=== PATIENT | male | born 1985 ===

== ENCOUNTER 2021-01-22 10:46 | Outpatient (REF) | payer OTHER, SELFPAY ==
[2021-01-22 11:03] LABS: MANUAL DIFF FLAG NO
[2021-01-22 11:06] LABS: Basophils Absolute Auto 0.1 X10*3/uL (0.0-0.2); Basophils Percent Auto 1.1 % (0-2); Eosinophils Absolute Auto 0.1 X10*3/uL (0.0-0.4); Hematocrit 40.4 % (42-52); Imm Gran Abs Auto 0.01 X10*3/uL (0.00-0.03); Imm Gran Pct Auto 0.2 % (0.0-0.4); Lymphocytes Absolute Auto 2.6 X10*3/uL (1.2-4.9); Lymphocytes Percent Auto 47.5 % (20-40); Mean Corpuscular HGB Conc 34.7 g/dl (31.0-36.0); Mean Corpuscular Hemoglobin 31.7 pg (27.0-33.0); Mean Corpuscular Volume 91.4 fL (80-98); Mean Platelet Volume 9.6 fL (9.4-12.4); Monocytes Absolute Auto 0.5 X10*3/uL (0.1-1.2); Monocytes Percent Auto 9.6 % (2-11); Neutrophils Absolute Auto 2.1 X10*3/uL (2.0-8.3); Neutrophils Percent Auto 39.6 % (45-73); Platelet Count 237 X10*3/uL (160-400); Red Blood Count 4.42 X10*6/uL (4.60-5.80); Red Cell Distribution Width 11.9 % (11.0-16.0); White Blood Count 5.4 X10*3/uL (4.8-10.8)
[2021-01-22 11:48] LABS: Alanine Aminotransferase 51 U/L (0-40); Albumin Level 4.7 g/dL (3.5-5.0); Alkaline Phosphatase 59 U/L (39-117); Anion Gap 13 (12-20); Aspartate Amino Transferase 70 U/L (5-37); Bilirubin Total 0.8 mg/dL (0.0-1.0); Blood Urea Nitrogen 17 mg/dL (9-16); Calcium 9.8 mg/dL (8.4-10.2); Carbon Dioxide 25 mmol/L (22-29); Chloride 105 mmol/L (96-108); Cholesterol 206 mg/dL; Estimated Glomerular Filt Rate > 60; Glucose Fasting 100 mg/dL (60-99); HDL Cholesterol 67 mg/dL; LDL Cholesterol Calculated 131 mg/dl; Potassium 4.6 mmol/L (3.3-5.1); Sodium 138 mmol/L (135-145); Total Protein 7.2 g/dL (6.5-8.0); Triglycerides 41 mg/dL
[2021-01-22 11:54] LABS: Thyroid Stimulating Hormone 0.68 uIU/mL (0.32-4.0)
== END 2021-01-22 10:47 | disposition home or self-care (01) ==
LOC: HO.LAB 10:46
PROVIDERS: PCP Internal Medicine; Visit Provider Internal Medicine
DX: Z00.00 Encounter for general adult medical examination without abnormal findings (principal); E03.9 Hypothyroidism, unspecified; E11.9 Type 2 diabetes mellitus without complications
CPT/HCPCS: 36415; 80053; 80061; 84443; 85025

== ENCOUNTER → 2021-01-26 14:11 | Outpatient (BNVA) | payer SELFPAY | PROVIDERS: PCP Internal Medicine | DX: R76.11 Nonspecific reaction to tuberculin skin test without active tuberculosis (principal) ==

== ENCOUNTER 2021-06-25 09:14 | Outpatient (REF) | payer OTHER, SELFPAY ==
[2021-06-25 12:02] LABS: Estimated Average Glucose 105 mg/dL; Hemoglobin A1c % 5.3 %
[2021-06-25 12:06] LABS: Alanine Aminotransferase 34 U/L (0-40); Albumin Level 4.9 g/dL (3.5-5.0); Alkaline Phosphatase 57 U/L (39-117); Aspartate Amino Transferase 37 U/L (5-37); Bilirubin Direct 0.3 mg/dL (0.0-0.5); Bilirubin Total 0.8 mg/dL (0.0-1.0); Cholesterol 253 mg/dL; Glucose Fasting 93 mg/dL (60-99); HDL Cholesterol 61 mg/dL; LDL Cholesterol Calculated 181 mg/dl; Total Protein 7.6 g/dL (6.5-8.0); Triglycerides 58 mg/dL
[2021-06-27 04:29] LABS: ~HepC Num1 0.04 S/CO (0.00-0.79); ~Hepatitis B Surface Antibody NONREACTIVE (Nonreactive); ~Hepatitis C Antibody Nonreactive (Nonreactive)
[2021-06-27 04:30] LABS: HBc Num1 0.05 S/CO (0.00-0.79); Hepatitis B Core Antibody Nonreactive (Nonreactive); Hepatitis B Surface Antigen Negative (Negative)
[2021-06-29 04:16] LABS: Hepatitis A Antibody IgM 0.27 Index (0-0.79); ~Hepatitis A Antibody IgM Nonreactive (Nonreactive)
== END 2021-06-25 09:15 | disposition home or self-care (01) ==
LOC: HO.HMGCLDS 09:14
PROVIDERS: PCP Internal Medicine; Visit Provider Internal Medicine
DX: E78.5 Hyperlipidemia, unspecified (principal); R74.8 Abnormal levels of other serum enzymes; R73.01 Impaired fasting glucose
CPT/HCPCS: 36415; 80061; 80076; 82947; 83036; 86704; 86706; 86709; 86803; 87340

== ENCOUNTER 2021-07-07 15:39 | Outpatient (RCR) | payer OTHER, SELFPAY ==
--- NOTE | 2021-07-07 18:26 | MHC.PT.EP ---
[facility] [place] [facility] [place] [facility] [place] [facility] [address] Rosalie Tran [address] [phone] F: [phone] F: [phone] F: [phone] F: [phone] Physical Therapy Plan of Care Date of Evaluation: Date of Surgery: Diagnosis: Pain an Fx L scapula. 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 Pt is deemed an appropriate candidate to receive skilled PT in order to address his physical limitations to improve his functional ability. Frequency and Duration: The patient will be seen 2 x/ wk x 6 wks. Short Term Goals: Initiate HEP with evidence of compliance. Improve baseline pain with activity to < 4/10; initial: 8/10. 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 Pt will report no longer restricted of overhead activities. Improve cervical deep neck flexor endurance to > 25 seconds in order to demonstrate improved cervical stability; initial: 6 seconds. Pt will improve SPADI questionnaire to by at least 13 points in order to demonstrate meaningful functional improvement; Score: 43/130. Treatment Plan: Modalities to reduce pain, spasms and effusion. Manual therapy to restore motion and function. Therapeutic exercise to improve strength and flexibility. Neuromuscular re-education for posture and balance. Therapeutic activities to return to functional activities of daily living. Electronically signed by: Cesar Melendez PT Please sign and return to therapist. Thank you for your referral.
--- NOTE | 2021-09-16 10:15 | MHC.PT.DC ---
[facility] [place] Office [place] Office [place] Office [address] Rosalie Tran [address] [phone] F: [phone] F: [phone] F: [phone] F: [phone] Physical Therapy Discharge Report Diagnosis: Pain an Fx L scapula. Date of Surgery: Date of Evaluation: 07/07/21 Date of Discharge: 09/16/21 Treatments to Date: 1 Cancellations to Date: No Shows to Date: Discharge Status: Discharge Summary: Pt did not follow up with therapy after his initial evaluation. Electronically signed by: Cesar Melendez PT. Please sign and return to therapist. Thank you for your referral.
== END 2021-09-16 10:14 | disposition home or self-care (01) ==
LOC: HO.PTCHIC 15:39
PROVIDERS: PCP Internal Medicine; Visit Provider Internal Medicine
DX: M89.8X1 Other specified disorders of bone, shoulder (principal); S42.102D Fracture of unspecified part of scapula, left shoulder, subsequent encounter for fracture with routine healing
CPT/HCPCS: 97110; 97161

== ENCOUNTER 2022-01-17 07:06 | Outpatient (REF) | payer OTHER, SELFPAY ==
[2022-01-17 12:35] LABS: Alanine Aminotransferase 39 U/L (0-40); Anion Gap 12 (12-20); Aspartate Amino Transferase 33 U/L (5-37); Blood Urea Nitrogen 22 mg/dL (9-16); Calcium 9.7 mg/dL (8.4-10.2); Carbon Dioxide 28 mmol/L (22-29); Chloride 106 mmol/L (96-108); Cholesterol 215 mg/dL; Estimated Glomerular Filt Rate > 60; Glucose Fasting 98 mg/dL (60-99); HDL Cholesterol 74 mg/dL; LDL Cholesterol Calculated 127 mg/dl; Potassium 4.9 mmol/L (3.3-5.1); Sodium 141 mmol/L (135-145); Triglycerides 74 mg/dL
[2022-01-19 05:22] LABS: Rubella IgG Antibody 1.38 Index
[2022-01-19 23:42] LABS: TS Negative Control Passed; TS Panel A 0; TS Panel B 1; TS Positive Control Passed; TSpotTB Negative (Negative)
== END 2022-01-17 07:07 | disposition home or self-care (01) ==
LOC: HO.HMGCLDS 07:06
PROVIDERS: Visit Provider Internal Medicine
DX: Z01.84 Encounter for antibody response examination (principal); Z11.1 Encounter for screening for respiratory tuberculosis; B35.4 Tinea corporis; E78.5 Hyperlipidemia, unspecified
CPT/HCPCS: 36415; 80048; 80061; 84450; 84460; 86481; 86762

== ENCOUNTER 2023-01-16 12:34 | Outpatient (AMB) | payer OTHER, SELFPAY ==
--- NOTE | 2023-01-16 12:37 | A.OFFPC_ITS ---
<Statement entered by Janay Diaz MD - 11/26/24 15:17> This note has been administratively?closed. Vital Signs 01/16/23 12:45 Height 6 ft 4 in Weight 231 lb BMI 28.1 BP 102/70 Blood Pressure Location Rt brachial Position Sitting Pulse 60 Pulse Source Pulse Oximeter Pulse Oximetry (%) 97 Oxygen Delivery Method Room Air Intake Visit Reasons: PE Intake Note: Pt is here today for his PE Allergies No Known Allergies [No Known Allergies*] Allergy (Verified 01/16/23 12:55) Medication List - Last Reconciled 01/16/23 by Janay Diaz MD No Known Home Meds Tobacco use date assessed: 01/16/23 Dental Screening Dental Screen Date: 01/16/23 Did you have a dental visit in the last 12 months?: Yes Did you have a dental problem in the last 6 months where you did not have access to dental care?: Yes Was dental information given to patient?: Patient has dentist HPI PE HPI Details 37-year-old male, here today for physical exam, needs for work. He also needs as screening for TB. He has been feeling well, no known medical history, no complaints at present time. 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 Has had his COVID vaccine but has not yet had his booster nor has he had his flu vaccine last year, and does not want to get these vaccines.. Up-to-date with [facility], [facility] Medical History (Updated 01/16/23 @ 13:19 by Janay Diaz MD) Dyslipidemia Elevated fasting blood sugar Hyperlipidemia Left knee sprain Left wrist fracture Scapular fracture Tinea corporis Surgical History History of surgery on left wrist Family History Mother No problems noted. Father No problems noted. 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 1. Little interest or pleasure in doing things: not at all 2. Feeling down, depressed, or hopeless: not at all 3. Trouble falling or staying asleep, or sleeping too much: several days 4. Feeling tired or having little energy: several days 5. Poor appetite or overeating: not at all 6. Feeling bad about yourself - or that you are a failure or have let yourself or your family down: not at all 7. Trouble concentrating on things, such as reading the newspaper or watching television: not at all 8. Moving or speaking so slowly that other people could have noticed. Or the opposite - being so fidgety or restless that you have been moving around a lot more than usual: not at all 9. Thoughts that you would be better off or of hurting yourself in some way: not at all Total score: 2 Depression Screening Interpretation: Negative 33623 - PHQ-9 Billing: Yes Source: Developed by Drs. Stephen Jaimes, Quiana Daniel, Joaquín Diaz and colleagues, with an educational adriana from [employer]. Thrive Questionnaire Date Thrive assessed: 01/16/23 I am a: Patient What is your living situation today?: I have a steady place to live Within the past 12 months, did the food you bought not last and you didn't have the money to get more?: Never true Within the past 12 months, did you worry whether your food would run out before you got money to buy more?: Never true Do you have trouble paying for medicines?: No Do you have trouble getting transportation to medical appointments?: No Do you have trouble paying your heating and electricity bill?: No Do you have trouble taking care of your child, family member or friend?: No Do you have trouble with day-to-day activities such as bathing, preparing meals, shopping, managing finances, etc.?: No Are you currently unemployed and looking for a job?: No Are you interested in more education?: No LYNNE-7 AMB Questionnaire LYNNE-7 Date LYNNE - 7 assessed: 01/16/23 Feeling nervous, anxious, or on edge: 1 = Several days Not being able to stop or control worryin = Not at all Worrying too much about different things: 1 = Several days Trouble relaxin = Not at all Being so restless that it is hard to sit still: 0 = Not at all Becoming easily annoyed or irritable: 1 = Several days Feeling afraid as if something awful might happen: 0 = Not at all Total LYNNE-7 score (0-4 normal; 5-9 mild; 10-14 moderate; 15-21 severe): 3 Source: Developed by Drs. Stephen Jaimes, Quiana Daniel, Joaquín Diaz and colleagues, with an educational adriana from [employer]. Review of Systems Const Denies difficulty sleeping, Denies fatigue, Denies fever(s), Denies headache(s), Denies lethargy, Denies malaise and Denies weakness Eyes Reports no additional complaints ENT Reports no additional complaints, Reports Normal hearing present, Denies dysphagia, Denies dizziness and Denies headache(s) Card Denies chest pain, Denies irregular heart rhythm, Denies lightheadedness, Denies dyspnea and Denies dyspnea on exertion Resp Denies cough, Denies pain on inspiration, Denies dyspnea, Denies dyspnea on exertion and Denies wheezing GI Denies abdominal pain, Denies melena, Denies hematochezia, Denies change in bowel habits, Denies dysphagia, Denies heartburn and Denies nausea Denies hematuria, Denies difficulty urinating, Denies dysuria, Denies penile discharge, Denies testicular mass and Denies urinary incontinence Musc Denies myalgias, Denies arthralgias, Denies joint swelling, Denies muscle weakness and Denies stiffness Skin/Breast Reports as per HPI Neuro Reports Normal hearing present, Denies dizziness, Denies headache(s), Denies seizure-like activity, Denies Sensory deficit (Neuro) and Denies weakness Psych Reports no additional complaints Endo Denies cold intolerance, Denies fatigue, Denies polyphagia, Denies polydipsia and Denies polyuria Mark/Lymph Denies easy bleeding and Denies easy bruising Aller/Immun Denies wheezing Physical exam (Primary Care) Vital Signs: Last Vital Signs Pulse 60 01/16/23 12:45 BP 102/70 01/16/23 12:45 Pulse Ox 97 01/16/23 12:45 Oxygen Delivery Method Room Air 01/16/23 12:45 BMI result Body Mass Index 28.1 Tobacco/Smoking Status: Tobacco use Status Tobacco use date assessed 01/16/23 01/16/23 12:41 Patient Tobacco Use Status Former Tobacco user 01/16/23 12:38 Tobacco use type Cigarette 01/16/23 12:38 e-Cigarette/Vaping Use Never Used 01/16/23 12:38 PHQ-9: PHQ-9 Score PHQ-9: Total score 2 01/16/23 13:24 Depression Screening Interpretation: Negative Thrive Assessment: Date of Thrive Assessment Date Thrive assessed 01/16/23 01/16/23 13:19 Neuro Cranial nerves: Yes Normal hearing present Sensory Exam: No Sensory deficit (Neuro) Assessment and Plan Assessment & Plan (1) Physical exam: Comment: 40min reviewing chart eval pt and documenting Code(s): Z00.00 - Encounter for general adult medical examination without abnormal findings (2) Elevated fasting blood sugar: Code(s): R73.01 - Impaired fasting glucose (3) Screening for tuberculosis: Code(s): Z11.1 - Encounter for screening for respiratory tuberculosis Orders: Orders Glucose Fasting Today R73.01 - Impaired fasting glucose, Z00.00 - Encounter for general adult medical examination without abnormal findings, Z11.1 - Encounter for screening for respiratory tuberculosis Lipid Panel Today R73.01 - Impaired fasting glucose, Z00.00 - Encounter for general adult medical examination without abnormal findings, Z11.1 - Encounter for screening for respiratory tuberculosis T Spot TB Today R73.01 - Impaired fasting glucose, Z00.00 - Encounter for gener al adult medical examination without abnormal findings, Z11.1 - Encounter for screening for respiratory tuberculosis Coding Level of Care Code Est Pt Prev Care 18-39y(83125) Diagnoses Physical exam Z00.00 Elevated fasting blood sugar R73.01 Screening for tuberculosis Z11.1
[2023-01-16 12:45] VITALS: BP 102/70; PULSE 60; O2SAT 97; BMI 28.1
== END 2023-01-16 14:10 | disposition home or self-care (01) ==
PROVIDERS: Visit Provider Internal Medicine
DX: Z00.00 Encounter for general adult medical examination without abnormal findings (principal); R73.01 Impaired fasting glucose; Z11.1 Encounter for screening for respiratory tuberculosis
CPT/HCPCS: 99499

== ENCOUNTER 2023-01-17 07:01 | Outpatient (REF) | payer OTHER, SELFPAY ==
[2023-01-17 11:43] LABS: Cholesterol 207 mg/dL; Glucose Fasting 96 mg/dL (60-99); HDL Cholesterol 60 mg/dL; LDL Cholesterol Calculated 132 mg/dl; Triglycerides 75 mg/dL
[2023-01-19 20:58] LABS: TS Negative Control Passed; TS Panel A 1; TS Panel B 0; TS Positive Control Passed; TSpotTB Negative (Negative)
== END 2023-01-17 07:02 | disposition home or self-care (01) ==
LOC: HO.HMGCLDS 07:01
PROVIDERS: PCP Internal Medicine; Visit Provider Internal Medicine
DX: Z00.00 Encounter for general adult medical examination without abnormal findings (principal); Z11.1 Encounter for screening for respiratory tuberculosis; R73.9 Hyperglycemia, unspecified
CPT/HCPCS: 36415; 80061; 82947; 86481

== ENCOUNTER 2024-02-26 08:56 | Outpatient (AMB) | payer OTHER, SELFPAY ==
--- NOTE | 2024-02-26 09:01 | MHC.PC.OV ---
Vital Signs 02/26/24 09:02 Height 6 ft 4 in Weight 226 lb BMI 27.5 BP 108/70 Blood Pressure Location Lt brachial Position Sitting Pulse 51 Pulse Source Pulse Oximeter Pulse Oximetry (%) 98 Oxygen Delivery Method Room Air Intake Visit Reasons: Followup skin issues Intake Note: Pt is here today c/o skin pigmentation on his back: He states it comes back in the summer time Allergies No Known Allergies [No Known Allergies*] Allergy (Verified 01/16/23 12:55) Medication List - Last Reconciled 02/29/24 by Janay Diaz MD azelastine 1 spray intranasal BID fexofenadine-pseudoephedrine 60-120 mg ER (Allergy Relief-D (fexofenadine)) 1 tab PO Q12H PRN ketoconazole 2% 1 appl topical BID 2 weeks Tobacco use date assessed: 02/26/24 Dental Screening Dental Screen Date: 02/26/24 Did you have a dental visit in the last 12 months?: Yes Did you have a dental problem in the last 6 months where you did not have access to dental care?: No Was dental information given to patient?: Patient has dentist HPI Followup skin issues HPI Details 38-year-old male here today complaining of recurrent pruritic white patches on upper back which again has appeared now that the weather is starting to get warm. Has had similar rash in the past which occurs only during the summertime. He is also having nasal congestion with postnasal drainage, frontal pressure and sometimes radiating to the ears, which has been present now for the last several weeks. Denies any accompanying sore throat, no fever, no cough reported. [facility] Medical History (Updated 02/26/24 @ 09:45 by Janay Diaz MD) Tinea versicolor Left knee sprain Tinea corporis Dyslipidemia Left wrist fracture Scapular fracture Hyperlipidemia Elevated fasting blood sugar Surgical History History of surgery on left wrist Family History Mother No problems noted. Father No problems noted. 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 1. Little interest or pleasure in doing things: not at all 2. Feeling down, depressed, or hopeless: not at all 3. Trouble falling or staying asleep, or sleeping too much: not at all 4. Feeling tired or having little energy: not at all 5. Poor appetite or overeating: not at all 6. Feeling bad about yourself - or that you are a failure or have let yourself or your family down: not at all 7. Trouble concentrating on things, such as reading the newspaper or watching television: not at all 8. Moving or speaking so slowly that other people could have noticed. Or the opposite - being so fidgety or restless that you have been moving around a lot more than usual: not at all 9. Thoughts that you would be better off or of hurting yourself in some way: not at all Total score: 0 Depression Screening Interpretation: Negative Depression Screening Done: Yes 51890 - PHQ-9 Billing: Yes Source: Developed by Drs. Stephen Jaimes, Quiana Daniel, Joaquín Diaz and colleagues, with an educational adriana from [employer]. Thrive Questionnaire Date Thrive assessed: 02/26/24 I am a: Patient What is your living situation today?: I have a steady place to live Within the past 12 months, did the food you bought not last and you didn't have the money to get more?: I choose not to answer this question Within the past 12 months, did you worry whether your food would run out before you got money to buy more?: I choose not to answer this question Do you have trouble paying for medicines?: I choose not to answer this question Do you have trouble getting transportation to medical appointments?: I choose not to answer this question Do you have trouble paying your heating and electricity bill?: I choose not to answer this question Do you have trouble taking care of your child, family member or friend?: I choose not to answer this question Do you have trouble with day-to-day activities such as bathing, preparing meals, shopping, managing finances, etc.?: I choose not to answer this question Are you currently unemployed and looking for a job?: I choose not to answer this question Are you interested in more education?: I choose not to answer this question Please select the resources that you would like help with: Housing/Residential Currently or been in a relationship where the following occur: I choose not to answer THRIVE Score: 0 AUDIT C Alcohol Use Questionnaire (AUDIT-C) 1. How often do you have a drink containing alcohol?: 2-4 times a month 2. How many drinks containing alcohol do you have on a typical day when you are drinking?: 1 or 2 3. How often do you have six or more drinks on one occasion?: Never Total Score: 2 LYNNE-7 AMB Questionnaire LYNNE-7 Date LYNNE - 7 assessed: 02/26/24 Feeling nervous, anxious, or on edge: 1 = Several days Not being able to stop or control worryin = Several days Worrying too much about different things: 1 = Several days Trouble relaxin = More than half the days Being so restless that it is hard to sit still: 2 = More than half the days Becoming easily annoyed or irritable: 1 = Several days Feeling afraid as if something awful might happen: 2 = More than half the days Total LYNNE-7 score (0-4 normal; 5-9 mild; 10-14 moderate; 15-21 severe): 10 Source: Developed by Drs. Stephen Jaimes, Quiana Daniel, Joaquín Diaz and colleagues, with an educational adriana from [employer]. Review of Systems Const All systems reviewed & are unremarkable except as noted in HPI and below ENT Reports Normal hearing present Neuro Reports Normal hearing present and Denies Sensory deficit (Neuro) Physical exam (Primary Care) Vital Signs: Last Vital Signs Pulse 51 02/26/24 09:02 BP 108/70 02/26/24 09:02 Pulse Ox 98 02/26/24 09:02 Oxygen Delivery Method Room Air 02/26/24 09:02 BMI result Body Mass Index 27.5 Tobacco/Smoking Status: Tobacco use Status Tobacco use date assessed 02/26/24 02/26/24 09:03 Patient Tobacco Use Status Former Tobacco user 02/26/24 09:02 Tobacco use type Cigarette 02/26/24 09:02 e-Cigarette/Vaping Use Never Used 02/26/24 09:02 PHQ-9: PHQ-9 Score PHQ-9: Total score 0 02/26/24 09:32 Depression Screening Interpretation: Negative Thrive Assessment: Date of Thrive Assessment Date Thrive assessed 02/26/24 02/26/24 09:09 Currently or been in a relationship where the following occur: I choose not to answer Const General: no acute distress and alert Nutritional Appearance: average body habitus Orientation/consciousness: patient oriented x3 HENMT Ears: hearing grossly normal bilaterally, external ears normal, TM's normal bilaterally and EAC's normal General nose exam: Normal external nose present and No nasal discharge present Mouth: oropharynx normal and moist mucous membranes Eyes General: appearance normal, both eyes and all related structures Conjunctivae: conjunctivae normal Pupils: Equal, round and reactive pupils present EOM: EOMs intact bilaterally Neck Neck: Yes full ROM, Yes no lymphadenopathy and Yes supple Resp Effort & Inspection: normal respiratory effort and able to speak in complete sentences Auscultation: clear to auscultation bilaterally Cardio Rate: regular rate Rhythm: regular rhythm Heart sounds: S1 normal heart sound present and S2 normal heart sound present GI Inspection: Yes normal to inspection Palpation (GI): Soft to palpation, nontender and no masses Auscultation: normal bowel sounds Back/Spine/Pelvis Back: No back tenderness Skin Other: Faint hypopigmented patches scattered diffusely on back and chest Neuro General: patient oriented x3 Cranial nerves: Yes Equal, round and reactive pupils present and Yes Normal hearing present Cognition (Neuro): normal cognition Gait exam (Neuro): Normal gait present Motor exam (neuro): 5/5 motor strength present throughout Sensory Exam: No Sensory deficit (Neuro) Extrem General: Yes normal to inspection, Yes full ROM, Yes no joint enlargement, Yes no pedal edema, Yes no calf tenderness and Yes normal gait Psych Appearance: grossly normal and well kempt Mental Status: mental status grossly normal Speech and movement: Normal speech and movement present Affect: normal affect Attitude: cooperative Assessment and Plan Assessment & Plan (1) Allergic rhinitis: Code(s): J30.9 - Allergic rhinitis, unspecified Qualifiers: Allergic rhinitis trigger: unspecified Allergic rhinitis seasonality: seasonal Qualified Code(s): J30.2 - Other seasonal allergic rhinitis Plan: Prescription sent for fexofenadine-pseudoephedrine 60-120 mg per tablet to take 1 tablet every 12 hours as needed for nasal congestion, take it only as needed for nasal congestion. Prescription also sent for Azelastine nasal spray, instill 1 spray per nostril twice a day for nasal congestion, samples of saline nasal rinse given to patient, to use as directed (2) Tinea versicolor: Code(s): B36.0 - Pityriasis versicolor Plan: Prescription sent for ketoconazole cream, applied to affected areas twice a day for no more than 10 days . Orders: Orders Alanine Aminotransferase 02/26/24 Z00.01 - Encounter for general adult medical examination with abnormal findings, Z11.3 - Encounter for screening for infections with a predominantly sexual mode of transmission, Z13.1 - Encounter for screening for diabetes mellitus, Z13.220 - Encounter for screening for lipoid disorders, Z83.49 - Family history of other endocrine, nutritional and metabolic diseases Basic Metabolic Panel Fasting 02/26/24 Z00.01 - Encounter for general adult medical examination with abnormal findings, Z11.3 - Encounter for screening for infections with a predominantly sexual mode of transmission, Z13.1 - Encounter for screening for diabetes mellitus, Z13.220 - Encounter for screening for lipoid disorders, Z83.49 - Family history of other endocrine, nutritional and metabolic diseases Complete Blood Count Auto Diff 02/26/24 Z00.01 - Encounter for general adult medical examination with abnormal findings, Z11.3 - Encounter for screening for infections with a predominantly sexual mode of transmission, Z13.1 - Encounter for screening for diabetes mellitus, Z13.220 - Encounter for screening for lipoid disorders, Z83.49 - Family history of other endocrine, nutritional and metabolic diseases TSH reflex Free T4 02/26/24 Z00.01 - Encounter for general adult medical examination with abnormal findings, Z11.3 - Encounter for screening for infections with a predominantly sexual mode of transmission, Z13.1 - Encounter for screening for diabetes mellitus, Z13.220 - Encounter for screening for lipoid disorders, Z83.49 - Family history of other endocrine, nutritional and metabolic diseases Hepatitis B,C Profile 02/26/24 Z00.01 - Encounter for general adult medical examination with abnormal findings, Z11.3 - Encounter for screening for infections with a predominantly sexual mode of transmission, Z13.1 - Encounter for screening for diabetes mellitus, Z13.220 - Encounter for screening for lipoid disorders, Z83.49 - Family history of other endocrine, nutritional and metabolic diseases Aspartate Amino Transferase 02/26/24 Z00.01 - Encounter for general adult medical examination with abnormal findings, Z11.3 - Encounter for screening for infections with a predominantly sexual mode of transmission, Z13.1 - Encounter for screening for diabetes mellitus, Z13.220 - Encounter for screening for lipoid disorders, Z83.49 - Family history of other endocrine, nutritional and metabolic diseases Lipid Panel 02/26/24 Z00.01 - Encounter for general adult medical examination with abnormal findings, Z11.3 - Encounter for screening for infections with a predominantly sexual mode of transmission, Z13.1 - Encounter for screening for diabetes mellitus, Z13.220 - Encounter for screening for lipoid disorders, Z83.49 - Family history of other endocrine, nutritional and metabolic diseases Vitamin D 25-OH Total 02/26/24 Z00.01 - Encounter for general adult medical examination with abnormal findings, Z11.3 - Encounter for screening for infections with a predominantly sexual mode of transmission, Z13.1 - Encounter for screening for diabetes mellitus, Z13.220 - Encounter for screening for lipoid disorders, Z83.49 - Family history of other endocrine, nutritional and metabolic diseases CT NG by PCR 02/26/24 Z00.01 - Encounter for general adult medical examination with abnormal findings, Z11.3 - Encounter for screening for infections with a predominantly sexual mode of transmission, Z13.1 - Encounter for screening for diabetes mellitus, Z13.220 - Encounter for screening for lipoid disorders, Z83.49 - Family history of other endocrine, nutritional and metabolic diseases HIV Ab/Ag 02/26/24 Z00.01 - Encounter for general adult medical examination with abnormal findings, Z11.3 - Encounter for screening for infections with a predominantly sexual mode of transmission, Z13.1 - Encounter for screening for diabetes mellitus, Z13.220 - Encounter for screening for lipoid disorders, Z83.49 - Family history of other endocrine, nutritional and metabolic diseases Medications: New azelastine administer into each nostril 1 spray intranasal BID 30 mL 0RF J30.9 - Allergic rhinitis, unspecified fexofenadine-pseudoephedrine 60-120 mg ER (Allergy Relief-D (fexofenadine)) 1 tab PO Q12H PRN 20 tabs 0RF allergy symptoms/nasal congestion Coding Level of Care Code Est Pt Level 4 (64785) Diagnoses Seasonal allergic rhinitis, unspecified trigger J30.2 Allergic rhinitis trigger: unspecified Allergic rhinitis seasonality: seasonal Tinea versicolor B36.0
[2024-02-26 09:02] VITALS: BP 108/70; PULSE 51; O2SAT 98; BMI 27.5
== END 2024-02-26 10:59 | disposition home or self-care (01) ==
PROVIDERS: PCP Internal Medicine; Visit Provider Internal Medicine
DX: J30.2 Other seasonal allergic rhinitis (principal); B36.0 Pityriasis versicolor
CPT/HCPCS: 99214

== ENCOUNTER 2024-03-28 07:17 | Outpatient (REF) | payer OTHER, SELFPAY ==
[2024-03-28 10:06] LABS: MANUAL DIFF FLAG NO
[2024-03-28 10:10] LABS: Basophils Absolute Auto 0.1 X10*3/uL (0.0-0.2); Eosinophils Absolute Auto 0.1 X10*3/uL (0.0-0.4); Eosinophils Percent Auto 2.4 % (0-4); Hematocrit 43.3 % (42.0-52.0); Hemoglobin 14.7 g/dl (14.0-18.0); Lymphocytes Absolute Auto 1.9 X10*3/uL (1.2-4.9); Lymphocytes Percent Auto 39.1 % (20-40); Mean Corpuscular HGB Conc 33.9 g/dl (31.0-36.0); Mean Corpuscular Hemoglobin 31.4 pg (27.0-33.0); Mean Corpuscular Volume 92.5 fL (80.0-98.0); Mean Platelet Volume 9.9 fL (9.4-12.4); Monocytes Absolute Auto 0.5 X10*3/uL (0.1-1.2); Monocytes Percent Auto 10.1 % (2-11); Neutrophils Absolute Auto 2.3 x10*3/uL (2.0-8.3); Neutrophils Percent Auto 47.4 % (45-73); Platelet Count 217 X10*3/uL (160-400); Red Blood Count 4.68 X10*6/uL (4.60-5.80); Red Cell Distribution Width 11.9 % (11.0-16.0); White Blood Count 4.9 X10*3/uL (4.8-10.8)
[2024-03-28 10:42] LABS: Alanine Aminotransferase 39 U/L (0-40); Anion Gap 14 (12-20); Aspartate Amino Transferase 39 U/L (5-37); Blood Urea Nitrogen 21 mg/dL (9-16); Carbon Dioxide 28 mmol/L (22-29); Chloride 102 mmol/L (96-108); Cholesterol 236 mg/dL (<200); Estimated Glomerular Filt Rate > 60; Glucose Fasting 92 mg/dL (60-99); HDL Cholesterol 77 mg/dL (>40); LDL Cholesterol Calculated 149 mg/dL (<100); Potassium 3.9 mmol/L (3.3-5.1); Sodium 140 mmol/L (135-145); Triglycerides 52 mg/dL (<150)
[2024-03-28 11:03] LABS: TSH reflex Free T4 1.28 uIU/mL (0.32-4.0); Vitamin D 25-OH Total 62.3 ng/mL (>30)
[2024-03-28 11:19] LABS: HBS Num1 0.58 mIU/mL (0-7.99); HBc Num1 0.07 S/CO (0.00-0.79); HBsAGNum1 0.25 S/CO (0.00-0.99); HIV AB/AG Nonreactive (Nonreactive); HIV Num 1 0.05 S/CO (0.00-0.99); Hepatitis B Core Antibody Nonreactive (Nonreactive); Hepatitis B Surface Antigen Negative (Negative); ~HepC Num1 0.07 S/CO (0.00-0.79); ~Hepatitis B Surface Antibody NONREACTIVE (Nonreactive); ~Hepatitis C Antibody Nonreactive (Nonreactive)
== END 2024-03-28 07:18 | disposition home or self-care (01) ==
LOC: HO.HMGCLDS 07:17
PROVIDERS: PCP Internal Medicine; Visit Provider Internal Medicine
DX: Z00.01 Encounter for general adult medical examination with abnormal findings (principal); Z13.220 Encounter for screening for lipoid disorders; Z13.1 Encounter for screening for diabetes mellitus; Z83.49 Family history of other endocrine, nutritional and metabolic diseases; Z11.3 Encounter for screening for infections with a predominantly sexual mode of transmission
CPT/HCPCS: 36415; 80048; 80061; 82306; 84443; 84450; 84460; 85025; 86704; 86706; 86803; 87340; 87389

== ENCOUNTER 2024-03-31 12:56 | Outpatient (AMB) | payer OTHER, SELFPAY ==
[2024-03-31 13:30] VITALS: BP 122/80; PULSE 64; O2SAT 98; BMI 27.9
--- NOTE | 2024-03-31 13:30 | MHC.PC.OV ---
Vital Signs 03/31/24 13:30 Height 6 ft 4 in Weight 229 lb 2 oz BMI 27.9 BP 122/80 Blood Pressure Location Lt brachial Pulse 64 Pulse Source Pulse Oximeter Pulse Oximetry (%) 98 Oxygen Delivery Method Room Air Intake Visit Reasons: Annual PE Intake Note: Pt is here today for his annual physical Allergies No Known Allergies [No Known Allergies*] Allergy (Verified 03/31/24 13:41) Medication List - Last Reconciled 03/31/24 by Janay Diaz MD azelastine 1 spray intranasal BID fexofenadine-pseudoephedrine 60-120 mg ER (Allergy Relief-D (fexofenadine)) 1 tab PO Q12H PRN ketoconazole 2% 1 appl topical BID 2 weeks Tobacco use date assessed: 03/31/24 Dental Screening Dental Screen Date: 03/31/24 Did you have a dental visit in the last 12 months?: Yes Did you have a dental problem in the last 6 months where you did not have access to dental care?: No Was dental information given to patient?: Patient has dentist HPI Annual PE HPI Details 38-year-old male with PMHx significant fo hyperlipidemia, tinea versicolor, seasonal and environmental allergies, here today for a physical exam. He works at [employer] and is due for an annual TB screening . He is up-to-date with his vaccinations. States that ketoconazole cream affords only temporary relief of the rash on his back. Would like to try the previous treatment he received in the past which consisted of selenium sulfide. 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 [facility] Medical History Tinea versicolor Left knee sprain Tinea corporis Dyslipidemia Left wrist fracture Scapular fracture Hyperlipidemia Elevated fasting blood sugar Surgical History History of surgery on left wrist Family History Mother No problems noted. Father No problems noted. 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 1. Little interest or pleasure in doing things: not at all 2. Feeling down, depressed, or hopeless: not at all 3. Trouble falling or staying asleep, or sleeping too much: not at all 4. Feeling tired or having little energy: several days 5. Poor appetite or overeating: not at all 6. Feeling bad about yourself - or that you are a failure or have let yourself or your family down: several days 7. Trouble concentrating on things, such as reading the newspaper or watching television: not at all 8. Moving or speaking so slowly that other people could have noticed. Or the opposite - being so fidgety or restless that you have been moving around a lot more than usual: not at all 9. Thoughts that you would be better off or of hurting yourself in some way: not at all Total score: 2 Depression Screening Interpretation: Negative Depression Screening Done: Yes 32796 - PHQ-9 Billing: Yes Source: Developed by Drs. Stephen Jaimes, Quiana Daniel, Joaquín Diaz and colleagues, with an educational adriana from [employer]. Thrive Questionnaire Date Thrive assessed: 03/31/24 I am a: Patient What is your living situation today?: I have a steady place to live Within the past 12 months, did the food you bought not last and you didn't have the money to get more?: I choose not to answer this question Within the past 12 months, did you worry whether your food would run out before you got money to buy more?: I choose not to answer this question Do you have trouble paying for medicines?: I choose not to answer this question Do you have trouble getting transportation to medical appointments?: I choose not to answer this question Do you have trouble paying your heating and electricity bill?: I choose not to answer this question Do you have trouble taking care of your child, family member or friend?: I choose not to answer this question Do you have trouble with day-to-day activities such as bathing, preparing meals, shopping, managing finances, etc.?: I choose not to answer this question Are you currently unemployed and looking for a job?: I choose not to answer this question Are you interested in more education?: I choose not to answer this question Please select the resources that you would like help with: Housing/Skilled Nursing Currently or been in a relationship where the following occur: I choose not to answer THRIVE Score: 0 AUDIT C Alcohol Use Questionnaire (AUDIT-C) 1. How often do you have a drink containing alcohol?: 2-4 times a month 2. How many drinks containing alcohol do you have on a typical day when you are drinking?: 1 or 2 3. How often do you have six or more drinks on one occasion?: Never Total Score: 2 Score Reviewed/Action Taken: Yes LYNNE-7 AMB Questionnaire LYNNE-7 Date LYNNE - 7 assessed: 03/31/24 Feeling nervous, anxious, or on edge: 1 = Several days Not being able to stop or control worryin = Not at all Worrying too much about different things: 1 = Several days Trouble relaxin = Several days Being so restless that it is hard to sit still: 1 = Several days Becoming easily annoyed or irritable: 1 = Several days Feeling afraid as if something awful might happen: 0 = Not at all Total LYNNE-7 score (0-4 normal; 5-9 mild; 10-14 moderate; 15-21 severe): 5 Source: Developed by Drs. Stephen Jaimes, Quiana Daniel, Joaquín Diaz and colleagues, with an educational adriana from [employer]. LYNNE-7 Assessment Billing LYNNE-7 Assessment Tool: LYNNE-7 Assessment 03124 Review of Systems Const Denies difficulty sleeping, Denies fatigue, Denies fever(s), Denies headache(s), Denies lethargy, Denies malaise and Denies weakness Eyes Reports no additional complaints ENT Reports Normal hearing present, Denies dysphagia, Denies dizziness and Denies headache(s) Card Denies chest pain, Denies irregular heart rhythm, Denies lightheadedness, Denies dyspnea and Denies dyspnea on exertion Resp Denies cough, Denies pain on inspiration, Denies dyspnea, Denies dyspnea on exertion and Denies wheezing GI Denies abdominal pain, Denies melena, Denies hematochezia, Denies change in bowel habits, Denies dysphagia, Denies heartburn and Denies nausea Denies hematuria, Denies difficulty urinating, Denies dysuria, Denies penile discharge, Denies testicular mass and Denies urinary incontinence Musc Denies myalgias, Reports arthralgias (Recurrent in shoulder ), Denies joint swelling, Denies muscle weakness and Denies stiffness Skin/Breast Reports as per HPI Neuro Reports Normal hearing present, Denies dizziness, Denies headache(s), Denies seizure-like activity, Denies Sensory deficit (Neuro) and Denies weakness Psych Reports no additional complaints Endo Denies cold intolerance, Denies fatigue, Denies polyphagia, Denies polydipsia and Denies polyuria Mark/Lymph Denies easy bleeding and Denies easy bruising Aller/Immun Denies wheezing Physical exam (Primary Care) Vital Signs: Last Vital Signs Pulse 64 03/31/24 13:30 BP 122/80 03/31/24 13:30 Pulse Ox 98 03/31/24 13:30 Oxygen Delivery Method Room Air 03/31/24 13:30 BMI result Body Mass Index 27.9 Tobacco/Smoking Status: Tobacco use Status Tobacco use date assessed 03/31/24 03/31/24 13:34 Patient Tobacco Use Status Former Tobacco user 03/31/24 13:34 Tobacco use type Cigarette 03/31/24 13:34 e-Cigarette/Vaping Use Never Used 03/31/24 13:34 PHQ-9: PHQ-9 Score PHQ-9: Total score 2 03/31/24 13:43 Depression Screening Interpretation: Negative Thrive Assessment: Date of Thrive Assessment Date Thrive assessed 03/31/24 03/31/24 13:34 Currently or been in a relationship where the following occur: I choose not to answer Const General: no acute distress and alert Nutritional Appearance: average body habitus Orientation/consciousness: patient oriented x3 HENMT Ears: hearing grossly normal bilaterally, external ears normal, TM's normal bilaterally and EAC's normal General nose exam: Normal external nose present and No nasal discharge present Mouth: oropharynx normal and moist mucous membranes Eyes General: appearance normal, both eyes and all related structures Conjunctivae: conjunctivae normal Pupils: Equal, round and reactive pupils present EOM: EOMs intact bilaterally Neck Neck: Yes full ROM, Yes no lymphadenopathy and Yes supple Chest Chest palpation & inspection: normal inspection of the chest Resp Effort & Inspection: normal respiratory effort and able to speak in complete sentences Auscultation: clear to auscultation bilaterally Cardio Rate: regular rate Rhythm: regular rhythm Heart sounds: S1 normal heart sound present and S2 normal heart sound present GI Inspection: Yes normal to inspection Palpation (GI): Soft to palpation, nontender and no masses Auscultation: normal bowel sounds General: Yes no CVA tenderness Male General Exam: Yes normal external exam Back/Spine/Pelvis Back: no CVA tenderness and No back tenderness Skin Other: Faint hypopigmented patches scattered diffusely on back and chest Neuro General: patient oriented x3 Cranial nerves: Yes Equal, round and reactive pupils present and Yes Normal hearing present Cognition (Neuro): normal cognition Gait exam (Neuro): Normal gait present Motor exam (neuro): 5/5 motor strength present throughout Sensory Exam: No Sensory deficit (Neuro) Extrem General: Yes normal to inspection, Yes full ROM, Yes no joint enlargement, Yes no pedal edema, Yes no calf tenderness and Yes normal gait Psych Appearance: grossly normal and well kempt Mental Status: mental status grossly normal Speech and movement: Normal speech and movement present Affect: normal affect Attitude: cooperative Results Reviewed Results Reviewed: Name: Franki Leung Age/Sex: 38/M : 1985 Unit#: [id number] Attend Dr: Janay Diaz MD Re03/28/24 Status: DEP REF [facility] Disch: SPEC : [id number] SHANTEL: 03/28/24 STATUS: COMP REQ : [id number] RECD: 03/28/[address]: Janay Diaz MD COMP: 03/28/24 ENTERED: 03/28/[address]: ORDERED: CBC Auto Diff Test Result Flag Reference WBC 4.9 4.8-10.8 X10*3/uL RBC 4.68 4.60-5.80 X10*6/uL HGB 14.7 14.0-18.0 g/dl HCT 43.3 42.0-52.0 % MCV 92.5 80.0-98.0 fL MCH 31.4 27.0-33.0 pg MCHC 33.9 31.0-36.0 g/dl RDW 11.9 11.0-16.0 % PLT 217 160-400 X10*3/uL MPV 9.9 9.4-12.4 fL Neut Pct Auto 47.4 45-73 % ImGran Pct Auto 0.0 0.0-0.4 % Lymp Pct Auto 39.1 20-40 % [place] Pct Auto 10.1 2-11 % Eos Pct Auto 2.4 0-4 % Baso Pct Auto 1.0 0-2 % NRBC Pct Auto 0.0 0.0-0.2 /100WBC ANC Neut Abs # 2.3 2.0-8.3 x10*3/uL ImGran Abs Auto 0.00 0.00-0.03 X10*3/uL Lymph Abs Auto 1.9 1.2-4.9 X10*3/uL [place] Abs Auto 0.5 0.1-1.2 X10*3/uL Eos Abs Auto 0.1 0.0-0.4 X10*3/uL Baso Abs Auto 0.1 0.0-0.2 X10*3/uL NRBC Abs Auto 0.000 0.0-0.012 X10*3/uL Name: Shine Leungana Cuellar Age/Sex: 38/M : 1985 Unit#: [id number] Attend Dr: Janay Diaz MD Re03/28/24 Status: DEP REF Location: [facility] Disch: SPEC : [id number] SHANTEL: 03/28/24 STATUS: COMP REQ : [id number] RECD: 03/28/[address]: Janay Diaz MD COMP: 03/28/24 ENTERED: 03/28/[address]: ORDERED: Met Prof Fast, AST, ALT, Lipid Panel, Vitamin D 25-OH, TSH Rflx Test Result Flag Reference Sodium 140 135-145 mmol/L Potassium 3.9 3.3-5.1 mmol/L CL 102 96-108 mmol/L CO2 28 22-29 mmol/L Gap 14 12-20 BUN 21 H 9-16 mg/dL Creat 1.09 0.5-1.4 mg/dL EGFR > 60 NOTE: For -[place] individuals, multiply the result by 1.210. Chronic Kidney Disease: Estimated GFR < 60 mL/min/1.73m2 Severe Kidney Disease: Estimated GFR < 15 mL/min/1.73m2 FBS 92 60-99 mg/dL CA 10.0 8.4-10.2 mg/dL AST (GOT) 39 H 5-37 U/L ALT (GPT) 39 0-40 U/L Triglyceride 52 <150 mg/dL Desirable Triglyceride: less than 150 mg/dL Borderline High Triglyceride 150-199 mg/dL High Triglyceride: 200-499 mg/dL Very High Triglyceride: greater than or equal to 5OO mg/dL Cholesterol 236 H <200 mg/dL Desirable Cholesterol: less than 200 mg/dL Borderline High Cholesterol: 200-239 mg/dL High Cholesterol: greater than 239 mg/dL LDL Calculated 149 H <100 mg/dL Desirable LDL: less than 100 mg/dL Near Optimal/Above Optimal LDL: 110-129 mg/dL Borderline High LDL: 130-159 mg/dL High LDL: 160-189 mg/dL Very High LDL: greater than or equal to 190 mg/dL HDL 77 >40 mg/dL Desirable HDL: greater than 40 mg/dL Note: This HDL assay may give artificially low results in patients with liver disease. Vit D 25-OH Tot 62.3 >30 ng/mL Health Based Reference Values* < 20 ng/mL Deficient 20-30 ng/mL Insufficient > 30 ng/mL Sufficient *Jayson DODGE. N Engl J Med. 2007;357:266-280 Care must be taken in interpreting Vitamin D results from different laboratories and methodologies. Published data demonstrated that results from patients undergoing hemodialysis may show a negative bias when tested with various automated 25-OH vitamin D assays when compared to LC-MS/MS. When testing samples from patients whose predominant form of Vitamin D is Vitamin D2, such as patients receiving Vitamin D2 supplementation, results that are subtherapeutic should be confirmed with another method such as LC-MS/MS. TSH 1.28 0.32-4.0 uIU/mL Assessment and Plan Assessment & Plan (1) Annual visit for general adult medical examination with abnormal findings: Code(s): Z00.01 - Encounter for general adult medical examination with abnormal findings Plan: Reviewed recent fasting lab results with patient. Recommended dental visit every 6 months and regular eye exams, at least every 2 years. Take adequate calcium in diet and vitamin-D 3 at 2000 IU per cap once a day, in addition to weight-bearing exercises to help maintain good muscle tone and weight control. Instructed to do self-testicular exam check for any mass. Advised to get yearly flu shots, and get the new COVID booster, up-to-date with Tdap (2) Tinea versicolor: Code(s): B36.0 - Pityriasis versicolor Plan: Stop ketoconazole, prescription sent for selenium sulfide lotion 2.5% to apply to affected area chest and back twice a week for at least 2 weeks (3) Screening examination for pulmonary tuberculosis: Code(s): Z11.1 - Encounter for screening for respiratory tuberculosis Plan: T spot ordered (4) Hyperlipidemia LDL goal <100: Code(s): E78.5 - Hyperlipidemia, unspecified Plan: Reviewed recent fasting lipid profile with patient with elevated LDL cholesterol . Advised to follow a low-cholesterol diet and regular exercise, at least 30 minutes 3 to 4 times a week. Advised patient to make healthy food choices, eat more fruits, vegetables, whole grains, wild caught fish and low-fat dairy. Limit amount of meat and fried or fatty food products, as well as processed foods and fast foods. Orders: Orders T Spot TB 03/31/24 Z11.1 - Encounter for screening for respiratory tuberculosis Medications: New selenium sulfide 2.5% 1 appl topical 2XW 2 weeks 120 mL 0RF B36.0 - Pityriasis versicolor Discontinued ketoconazole 2% Discontinued Reason: Doctor's Order 1 appl topical BID 2 weeks 60 grams 0RF B36.0 - Pityriasis versicolor Coding Level of Care Code Est Pt Prev Care 18-39y(42391) Diagnoses Annual visit for general adult medical examination with abnormal findings Z00. Tinea versicolor B36.0 Screening examination for pulmonary tuberculosis Z11. Hyperlipidemia LDL goal <100 E78.5 Additional Codes LYNNE-7 Assessment Billing - LYNNE-7 Assessment Tool: LYNNE-7 Assessment 41136 ([id number])
== END 2024-03-31 14:06 | disposition home or self-care (01) ==
PROVIDERS: PCP Internal Medicine; Visit Provider Internal Medicine
DX: Z00.00 Encounter for general adult medical examination without abnormal findings (principal); B36.0 Pityriasis versicolor; Z11.1 Encounter for screening for respiratory tuberculosis; E78.5 Hyperlipidemia, unspecified
CPT/HCPCS: 99395

== ENCOUNTER 2024-04-01 07:06 | Outpatient (REF) | payer OTHER, SELFPAY ==
[2024-04-04 11:08] LABS: TS Negative Control Passed; TS Panel A 0; TS Panel B 0; TS Positive Control Passed; TSpotTB Negative (Negative)
== END 2024-04-01 07:07 | disposition home or self-care (01) ==
LOC: HO.HMGCLDS 07:06
PROVIDERS: PCP Internal Medicine; Visit Provider Internal Medicine
DX: Z11.1 Encounter for screening for respiratory tuberculosis (principal)
CPT/HCPCS: 36415; 86481

== ENCOUNTER 2024-06-30 08:38 | Outpatient (AMB) | payer OTHER, SELFPAY ==
--- NOTE | 2024-06-30 08:53 | AM.OFFWIN_ITS ---
Intake Vital Signs 06/30/24 08:54 Height 64 ft Weight 232 lb BMI 0.3 BP 118/70 Blood Pressure Location Rt brachial Position Sitting Pulse 69 Pulse Source Pulse Oximeter Pulse Oximetry (%) 98 Oxygen Delivery Method Room Air Intake Visit Reasons: EP LT wrist pain Intake Note: Patien there for left wrist pain that started yesterday. pt states he has had surgery on that hand so would like to make sure everything is ok. Patient Tobacco Use Status: Former Tobacco user Allergies No Known Allergies [No Known Allergies*] Allergy (Verified 06/30/24 08:55) Do you need a note to return to daycare/school/sports/work: Yes HPI HPI Comments History of Present Illness Details History of Present Illness The patient is a 38-year-old male presenting with wrist pain. He reports playing soccer last night and experiencing increased wrist pain subsequently. The patient states no specific incident of injury but describes discomfort and pain on the base of the thumb/wrist. He has a history of prior wrist surgery involving screws due to a condition where insufficient blood was reaching his fingers, necessitating urgent surgical intervention. This morning, the patient reports intensified pain primarily at the base of the thumb. He denies swelling, numbness, or tingling and has maintained full range of motion in his fingers. Pain is exacerbated by lateral and medial deviations of the wrist and flexion and extension. He expresses concern about potential displacement of the previously placed screw. Physical Exam General: Cooperative, healthy appearing, comfortable, no acute distress and well developed Orientation: Patient oriented x3 Limitations: Limited flexibility in the wrist Head: Normal to inspection Ears: Hearing grossly normal bilaterally Nose: Normal external nose present Face and sinus: Normal facial exam Eyes: Appearance normal, both eyes and all related structures Neck: Normal visual inspection and Yes full ROM Respiratory: Normal respiratory effort and able to speak in complete sentences. Clear to auscultation bilaterally Cardiovascular: Regular rate and rhythm. Normal S1 and S2 GI: Normal to inspection. Soft to palpation and nontender Skin: No rashes or lesions noted Neuro: Patient oriented x3 Extremities: Surgical scar noted on left wrist, left Wrist TTP, especially at the base of the thumb. Limited range of motion in the left wrist with pain on flexion, extension, and medial deviation. No numbness or tingling in fingers. Normal finger movement with full range of motion. Fingers [facility] Medical History Tinea versicolor Left knee sprain Tinea corporis Dyslipidemia Left wrist fracture Scapular fracture Hyperlipidemia Elevated fasting blood sugar Surgical History History of surgery on left wrist Family History Mother No problems noted. Father No problems noted. 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 Current occupational exposures/hazards: No Cognitive needs: No Hearing needs: No Vision needs: Yes Review of Systems Const All systems reviewed & are unremarkable except as noted in HPI and below Physical Exam Vital Signs: Last Vital Signs Pulse 69 06/30/24 08:54 BP 118/70 06/30/24 08:54 Pulse Ox 98 06/30/24 08:54 Oxygen Delivery Method Room Air 06/30/24 08:54 BMI result Body Mass Index 0.3 Assessment & Plan Assessment & Plan (1) Wrist pain, left: Code(s): M25.532 - Pain in left wrist Plan: Plan For the wrist pain, likely due to minor trauma from recent physical activity, I have ordered an x-ray to assess for any potential displacement of the existing screw or other structural abnormalities. The patient is advised to rest, apply ice to the affected area, and use ibuprofen for pain management. An Dc wrap or wrist brace may be used temporarily for support, although not recommended for extended use beyond three to four days to avoid stiffness. If the x-ray findings suggest further intervention is necessary, follow-up actions will be considered. The patient is provided a note for rest from work to avoid worsening of the condition. Patient was informed and verbally consented to the use of an ambient scribe for clinic note documentation during this visit. Orders: Orders XR wrist LT w scaphoid Today M25.532 - Pain in left wrist Coding Level of Care Code Est Pt Level 4 (00333) Diagnoses Wrist pain, left M25.532
[2024-06-30 08:54] VITALS: BP 118/70; PULSE 69; O2SAT 98
== END 2024-06-30 09:09 | disposition home or self-care (01) ==
PROVIDERS: PCP Internal Medicine; Visit Provider Physician Assistant
DX: M25.532 Pain in left wrist (principal)

== ENCOUNTER 2024-06-30 08:38 | Outpatient (REF) | payer OTHER, SELFPAY ==
--- NOTE | ~2024-06-30 | XR_ITS ---
EXAMINATION: XR WRIST, LEFT CLINICAL INFORMATION: Left wrist pain. COMPARISON: Left finger radiographs dated 03/31/2019. TECHNIQUE: PA, lateral, oblique, and scaphoid views of the left wrist. FINDINGS: Redemonstration of a scaphoid orthopedic screw without evidence of hardware complication. No fracture or loosening. Degenerative cystic change at the scapholunate articulation as well as at the base of the scaphoid. Small triscaphe marginal osteophytes. Findings are similar when compared to the prior radiographs. Mild widening of the scapholunate articulation, which could indicate an underlying scapholunate ligament tear. No acute osseous fracture. No concerning lytic or blastic osseous lesion. Small amount of calcification along the dorsal aspect of the radiocarpal joint, which could represent early chondrocalcinosis. XR/XR wrist LT w scaphoid IMPRESSION: 1. Scaphoid orthopedic screw without evidence of hardware complication. 2. Mild widening of the scapholunate articulation, which could indicate an underlying scapholunate ligament tear, similar when compared to the prior radiographs. 3. Degenerative cystic change at the scapholunate articulation as well as at the base of the scaphoid, similar when compared to the prior radiographs. 4. Mild triscaphe osteoarthritis, unchanged. Electronically signed by: Jose Hernandez MD 06/30/2024 11:14 AM CAROL
== END 2024-06-30 08:39 | disposition home or self-care (01) ==
LOC: HO.HMGCX 08:38
PROVIDERS: PCP Internal Medicine; Visit Provider Physician Assistant
DX: M25.532 Pain in left wrist (principal)
CPT/HCPCS: 73110

== ENCOUNTER 2024-08-29 08:32 | Outpatient (AMB) | payer OTHER, SELFPAY ==
--- NOTE | 2024-08-29 08:29 | MHC.PC.OV ---
Intake Visit Reasons: discuss personal issues Intake Note: Pt is having a telehealth c/o panic attacks at times Allergies No Known Allergies [No Known Allergies*] Allergy (Verified 08/29/24 08:41) Medication List - Last Reconciled 08/29/24 by Janay Diaz MD No Known Home Meds Tobacco use date assessed: 08/29/24 Dental Screening Dental Screen Date: 08/29/24 Did you have a dental visit in the last 12 months?: Yes Did you have a dental problem in the last 6 months where you did not have access to dental care?: No Was dental information given to patient?: Patient has dentist HPI HPI Comments History of Present Illness Details - The patient is a 39-year-old male presenting with episodes of chest tightness and difficulty breathing. - Symptoms began approximately six months ago, usually during physical exertion or after large meals. - He experiences a sensation of tightness and difficulty in breathing, mainly at night after eating. - Lifestyle modifications such as reducing caffeine intake have led to a decrease in episode frequency. - There is no associated stomach pain, and past medical history indicates no changes in blood pressure or heart issues. [facility] Medical History Tinea versicolor Left knee sprain Tinea corporis Dyslipidemia Left wrist fracture Scapular fracture Hyperlipidemia Elevated fasting blood sugar Surgical History History of surgery on left wrist Family History Mother No problems noted. Father No problems noted. 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 1. Little interest or pleasure in doing things: not at all 2. Feeling down, depressed, or hopeless: not at all 3. Trouble falling or staying asleep, or sleeping too much: not at all 4. Feeling tired or having little energy: not at all 5. Poor appetite or overeating: not at all 6. Feeling bad about yourself - or that you are a failure or have let yourself or your family down: not at all 7. Trouble concentrating on things, such as reading the newspaper or watching television: not at all 8. Moving or speaking so slowly that other people could have noticed. Or the opposite - being so fidgety or restless that you have been moving around a lot more than usual: not at all 9. Thoughts that you would be better off or of hurting yourself in some way: not at all Total score: 0 Depression Screening Interpretation: Negative Depression Screening Done: Yes [id number] - PHQ-9 Billing: Yes Source: Developed by Drs. Stephen Jaimes, Quiana Daniel, Joaquín Diaz and colleagues, with an educational adriana from [employer]. Thrive Questionnaire Date Thrive assessed: 08/29/24 I am a: Patient What is your living situation today?: I have a steady place to live Within the past 12 months, did the food you bought not last and you didn't have the money to get more?: Never true Within the past 12 months, did you worry whether your food would run out before you got money to buy more?: Never true Do you have trouble paying for medicines?: No Do you have trouble getting transportation to medical appointments?: No Do you have trouble paying your heating and electricity bill?: No Do you have trouble taking care of your child, family member or friend?: No Do you have trouble with day-to-day activities such as bathing, preparing meals, shopping, managing finances, etc.?: No Are you currently unemployed and looking for a job?: No Are you interested in more education?: No THRIVE Score: 0 AUDIT C Alcohol Use Questionnaire (AUDIT-C) 1. How often do you have a drink containing alcohol?: Monthly or less 2. How many drinks containing alcohol do you have on a typical day when you are drinking?: 1 or 2 3. How often do you have six or more drinks on one occasion?: Never Total Score: 1 LYNNE-7 AMB Questionnaire LYNNE-7 Date LYNNE - 7 assessed: 08/29/24 Feeling nervous, anxious, or on edge: 1 = Several days Not being able to stop or control worryin = Several days Worrying too much about different things: 1 = Several days Trouble relaxin = Not at all Being so restless that it is hard to sit still: 0 = Not at all Becoming easily annoyed or irritable: 0 = Not at all Feeling afraid as if something awful might happen: 0 = Not at all Total LYNNE-7 score (0-4 normal; 5-9 mild; 10-14 moderate; 15-21 severe): 3 Source: Developed by Drs. Stephen Jaimes, Quiana Daniel, Joaquín Diaz and colleagues, with an educational adriana from [employer]. Review of Systems Const All systems reviewed & are unremarkable except as noted in HPI and below Physical exam (Primary Care) Tobacco/Smoking Status: Tobacco use Status Tobacco use date assessed 08/29/24 08/29/24 08:30 Patient Tobacco Use Status Former Tobacco user 08/29/24 08:30 Tobacco use type Cigarette 08/29/24 08:30 e-Cigarette/Vaping Use Never Used 08/29/24 08:30 PHQ-9: PHQ-9 Score PHQ-9: Total score 0 08/29/24 08:52 Depression Screening Interpretation: Negative Thrive Assessment: Date of Thrive Assessment Date Thrive assessed 08/29/24 08/29/24 08:32 Telehealth Telehealth Telehealth Platform: [facility] Location of provider rendering services: practice address Location of patient: address on file Patient Identification confirmed using: Name, : Yes Telehealth method: video Patient verbally consented to treatment: Yes Patient verbally consented to billing insurance company: Yes Patient informed of any privacy concerns related to visit: Yes Minutes spent on Phone/Video with Pt.: 15 Coding Level of Care Code Tele Est Pt Level 3 (41936) Diagnoses Sensation of chest tightness R07.89 Additional Codes PHQ-9 - 40379 - PHQ-9 Billing: Yes ([id number]) Assessment & Plan Assessment & Plan (1) Sensation of chest tightness: Code(s): R07.89 - Other chest pain Plan: A diagnostic plan is established to explore the possible presence of a hiatal hernia with an upper GI series and to rule out cardiac issues with an EKG. The patient is to begin omeprazole therapy, which is intended to reduce stomach acidity. Attention to dietary choices with a reduction in caffeine and acidic foods is recommended. - Take omeprazole 20 mg once daily, an hour before the first meal of the day. - Avoid acidic foods, caffeine, and fried foods to help reduce symptoms. - Stay upright for a while after eating to help prevent symptoms. - Follow up with the hospital for scheduled EKG and upper GI series. - Contact us if no call is received regarding test scheduling. - Engage in physical activity as tolerated and be mindful of symptoms. - Report any new or worsening symptoms immediately. Patient was informed and verbally consented to the use of an ambient scribe for clinic note documentation during this visit. Orders: Orders ECG 12 lead EKG 08/29/24 R07.89 - Other chest pain, R09.A2 - Foreign body sensation, throat FL upper GI series 08/29/24 R07.89 - Other chest pain, R09.A2 - Foreign body sensation, throat Medications: New omeprazole Take an hour before the 1st meal of the day 20 mg PO DAILY 30 caps 1RF 30 days
--- OUTSIDE RECORDS SUMMARY | 2024-08-29 08:59 | XMS_ITS | Clinical Summary ---
Author Organization [facility] lin Address [address] [place] [address] Care Team Providers Care Pickle Sorter Name Role Phone Dedrick Iraheta MD Primary Care Provider Allergies No known active allergies Medications No known medications Immunizations Name Administration Dates Next Due Flucelvax Trivalent PFS IM; Without Preservative (18+ mos) 03/17/2019 Social History Tobacco Use Types Packs/Day Years Used Date Smoking Tobacco: Former Smokeless Tobacco: Never Sex and Gender Information Value Date Recorded Sex Assigned at Not on file Legal Sex Male 1:46 PM EST Gender Identity Not on file Sexual Orientation Not on file Last Filed Vital Signs Vital Sign Reading Time Taken Comments Blood Pressure 116/60 01/30/2021 2:48 PM EDT Pulse 60 01/30/2021 2:48 PM EDT Temperature 36.4 ??C (97.6 ??F) 01/30/2021 2:48 PM ED T Respiratory Rate 16 01/30/2021 2:48 PM EDT Oxygen Saturation 99% 01/30/2021 2:48 PM EDT Inhaled Oxygen Concentration - - Weight 95.3 kg (210 lb) 01/30/2021 2:48 PM EDT Height 190.5 cm (6' 3 ) 01/30/2021 2:48 PM EDT Body Mass Index 26.25 01/30/2021 2:48 PM EDT Plan of Treatment Health Maintenance Due Date Last Done Comments Depression: Screening Annual ly using PHQ-2/9 in Adults 18 yrs or above (or HM Modifier)([facility]) 2003 Hepatitis C Virus Infection in Adolescents and Adults: Screening (or Modifier) ([facility]) 2003 SDOH Screening Reminder: Ramona carlosllsanju for all adults ([facility]) 2003 Tobacco Smoking Cessation: i n Adults excluding Women: Behavioral and Pharmacotherapy Interventions ([facility]) 2003 DTaP/Tdap/Td Vaccines ([facility]) (1 - Tdap) 2004 Lipid Screening: Every 5 yrs for Men aged 35+ (or HM Modifier) ([facility]) 2021 Flu Vaccination: Yearly for ages 18mos through 64 years (or Modifier)([facility]) 02/21/2024 03/17/2019 COVID-19 Vaccine Screening: Initial Series and Booster Status ([facility]) ( - 2023- season) 2024 Zoster/Shingles Vaccine Seri es Screening: Adults aged 18+ yrs (or HM Modifiers)([facility]) (1 of 2) 2035 Pneumococcal Vaccination Scr eening: Pts 0-19 & 19-64 yrs of age ([facility]) Aged Out No longer eligible b ased on patient's age to complete this topic Medical Devices Not on file Insurance [address] [place] [address] Care Teams Pickle Sorter Relationship Specialty Start Date End Date Dedrick Iraheta MD [address] [place] [address] [address] [place] [address] PCP - General Internal Medicine 01/30/21
== END 2024-08-29 09:00 | disposition home or self-care (01) ==
LOC: HO.HMCC 08:32
PROVIDERS: PCP Internal Medicine; Visit Provider Internal Medicine
DX: R07.89 Other chest pain (principal)

== ENCOUNTER → 2024-08-29 08:32 | Outpatient (BNVA) | payer OTHER, SELFPAY | PROVIDERS: PCP Internal Medicine; Visit Provider Internal Medicine | DX: R07.89 Other chest pain (principal) | CPT/HCPCS: 96127 ==

== ENCOUNTER 2024-09-15 07:49 | Outpatient (REF) | payer OTHER, SELFPAY ==
--- NOTE | ~2024-09-15 | FL_ITS ---
EXAMINATION: XR FLUOROSCOPY UPPER GI WITH AIR CLINICAL INFORMATION: Chest pain/epigastric pain COMPARISON: None TECHNIQUE: Fluoroscopic air contrast upper GI examination was performed utilizing standard techniques with thin and thick barium and effervescent granules. Numerous spot images were obtained. FINDINGS: Dual and single contrast images of the esophagus demonstrate normal caliber, contour, and mucosal pattern. No evidence of stricture, mass, or ulcerations identified. Esophageal peristalsis is mildly disorganized. A very small type I hiatal hernia is present. No significant gastroesophageal reflux was seen during the course of the examination and on reflux views. Dual contrast and single contrast images of the stomach demonstrated normal contour and mucosal pattern without evidence of mass, ulceration, or other abnormality. Contrast freely passed into the gastric antrum and duodenal bulb without delay. Single and air-contrast images of the duodenal bulb demonstrate no abnormality. The duodenal sweep has a normal appearance, course, and mucosal fold appearance. The imaged proximal jejunum has a normal fold pattern and caliber. FLUOROSCOPY TIME: 2 minutes 49 seconds Number of Spot Images: 9 Number of Cine: 12 DOSE AREA PRODUCT: 2164 uGy-m2 (microgray-meter squared) FL/FL upper GI series IMPRESSION: 1. Mildly disordered esophageal peristalsis. 2. Very small type I hiatal hernia. This procedure was performed by Nomi Banuelos PA-C, and supervised by Dr. Henry Electronically signed by: Denton Henry MD 09/16/2024 04:49 PM [facility]
== END 2024-09-15 07:50 | disposition home or self-care (01) ==
LOC: HO.XRAY 07:49
PROVIDERS: PCP Internal Medicine; Visit Provider Internal Medicine
DX: R07.89 Other chest pain (principal); R10.13 Epigastric pain; R09.A2 Foreign body sensation, throat
CPT/HCPCS: 74240

== ENCOUNTER → 2024-09-15 07:50 | Outpatient (BNV) | payer OTHER, SELFPAY | PROVIDERS: PCP Internal Medicine; Visit Provider Physician Assistant Surgical | DX: R10.13 Epigastric pain (principal) | CPT/HCPCS: 74246; 74248 ==

== ENCOUNTER 2025-04-01 08:39 | Outpatient (AMB) | payer OTHER, SELFPAY ==
[2025-04-01 09:12] VITALS: BP 108/72; PULSE 58; RESP 16; TEMP 36.7; O2SAT 98; BMI 28.1
--- NOTE | 2025-04-01 09:12 | A.OFFPC_ITS ---
Vital Signs 04/01/25 09:12 Height 6 ft 4 in Weight 231 lb BMI 28.1 BP 108/72 Blood Pressure Location Lt brachial Position Sitting Respiration 16 Pulse 58 Pulse Source Pulse Oximeter Temp 98.1 F Temp Source Oral Pulse Oximetry (%) 98 Oxygen Delivery Method Room Air Intake Visit Reasons: Annual PE Intake Note: Pt is here today for his PE Allergies No Known Allergies (No Known Allergies*) Allergy (Verified 04/01/25 09:50) Medication List - Last Reconciled 04/01/25 by Janay Diaz MD No Known Home Meds Tobacco use date assessed: 04/01/25 Dental Screening Dental Screen Date: 08/29/24 HPI Annual PE HPI Details - The patient is a 39-year-old male with history gastroesophageal reflux disease, hyperlipidemia, , here today for physical exam. - Gastroesophageal reflux disease: The p atient manages his symptoms through dietary changes, avoiding specific foods that exacerbate his condition. He has not found Omeprazole effective. - Hyperlipidemia: The patient's choleste rol levels were elevated last year, and he maintains a regular exercise routine - Elevated liver enzymes: The patient jacobson d mild elevation in his liver enzymes last year. - COVID-19 infection: The patient recent ly recovered from COVID-19, afebrile at present, but complaining of residual nasal congestion and headaches, using Iris and saline nasal spray for relief. - takes occasional Excedrin migraine tab lets for occasional headaches.. - Dermatological concerns: The patient h as a hyperpigmented mole and a healing lesion on his left lower leg. [facility] Medical History Tinea versicolor Left knee sprain Tinea corporis Dyslipidemia Left wrist fracture Scapular fracture Elevated fasting blood sugar Surgical History History of surgery on left wrist Family History Mother No problems noted. Father No problems noted. 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 1. Little interest or pleasure in doing things: not at all 2. Feeling down, depressed, or hopeless: not at all 3. Trouble falling or staying asleep, or sleeping too much: not at all 4. Feeling tired or having little energy: not at all 5. Poor appetite or overeating: not at all 6. Feeling bad about yourself - or that you are a failure or have let yourself or your family down: not at all 7. Trouble concentrating on things, such as reading the newspaper or watching television: not at all 8. Moving or speaking so slowly that other people could have noticed. Or the opposite - being so fidgety or restless that you have been moving around a lot more than usual: not at all 9. Thoughts that you would be better off or of hurting yourself in some way: not at all Total score: 0 Depression Screening Interpretation: Negative Depression Screening Done: Yes Source: Developed by Drs. Stephen Jaimes, Quiana Daniel, Joaquín Diaz and colleagues, with an educational adriana from [employer]. Thrive Questionnaire Date Thrive assessed: 08/29/24 I am a: Patient What is your living situation today?: I have a steady place to live Within the past 12 months, did the food you bought not last and you didn't have the money to get more?: Never true Within the past 12 months, did you worry whether your food would run out before you got money to buy more?: I choose not to answer this question Do you have trouble paying for medicines?: No Do you have trouble getting transportation to medical appointments?: No Do you have trouble paying your heating and electricity bill?: No Do you have trouble taking care of your child, family member or friend?: No Do you have trouble with day-to-day activities such as bathing, preparing meals, shopping, managing finances, etc.?: No Are you currently unemployed and looking for a job?: No Are you interested in more education?: Yes Please select the resources that you would like help with: Education Currently or been in a relationship where the following occur: I choose not to answer THRIVE Score: 0 AUDIT C Alcohol Use Questionnaire (AUDIT-C) 1. How often do you have a drink containing alcohol?: Monthly or less 2. How many drinks containing alcohol do you have on a typical day when you are drinking?: 1 or 2 3. How often do you have six or more drinks on one occasion?: Never Total Score: 1 LYNNE-7 AMB Questionnaire LYNNE-7 Date LYNNE - 7 assessed: 08/29/24 Source: Developed by Drs. Stephen Jaimes, Quiana Daniel, Joaquín Diaz and colleagues, with an educational adriana from [employer]. Review of Systems Const Denies malaise and Denies weakness Eyes Details: goes to [facility], has myopia Reports no additional complaints ENT Reports no additional complaints and Reports Normal hearing present Card Denies chest pain, Denies irregular heart rhythm, Denies lightheadedness and Denies dyspnea Resp Denies cough and Denies dyspnea GI Denies abdominal pain, Denies change in bowel habits and Denies heartburn Denies hematuria, Denies difficulty urinating, Denies dysuria, Denies penile discharge and Denies testicular mass Musc Denies myalgias, Reports arthralgias (Recurrent in shoulder ), Denies joint swelling, Denies muscle weakness and Denies stiffness Skin/Breast Reports as per HPI Neuro Reports Normal hearing present, Denies seizure-like activity, Denies Sensory deficit (Neuro) and Denies weakness Psych Reports no additional complaints Endo Reports no additional complaints Mark/Lymph Reports no additional complaints Aller/Immun Reports no additional complaints Physical exam (Primary Care) Vital Signs: Last Vital Signs Temp 98.1 F 04/01/25 09:12 Pulse 58 04/01/25 09:12 Resp 16 04/01/25 09:12 BP 108/72 04/01/25 09:12 Pulse Ox 98 04/01/25 09:12 Oxygen Delivery Method Room Air 04/01/25 09:12 BMI result Body Mass Index 28.1 Tobacco/Smoking Status: Tobacco use Status Tobacco use date assessed 04/01/25 04/01/25 09:28 Patient Tobacco Use Status Former Tobacco user 04/01/25 09:12 Tobacco use type Cigarette 04/01/25 09:12 e-Cigarette/Vaping Use Never Used 04/01/25 09:12 Depression Screening Interpretation: Negative Thrive Assessment: Date of Thrive Assessment Date Thrive assessed 08/29/24 04/01/25 09:12 Currently or been in a relationship where the following occur: I choose not to answer Advance Care Planning discussion: Completed/Scanned Date of discussion: 04/01/25 Who was present: Patient Forms completed: Health Care Proxy Actual minutes spent: 3 Const General: no acute distress Nutritional Appearance: average body habitus Orientation/consciousness: patient oriented x3 HENMT Ears: external ears normal, TM's normal bilaterally and EAC's normal General nose exam: Normal external nose present and No nasal discharge present Mouth: moist mucous membranes Eyes General: appearance normal, both eyes and all related structures Conjunctivae: conjunctivae normal Pupils: Equal, round and reactive pupils present EOM: EOMs intact bilaterally Neck Neck: Yes full ROM, Yes no lymphadenopathy and Yes supple Resp Effort & Inspection: normal respiratory effort and able to speak in complete sentences Auscultation: clear to auscultation bilaterally Cardio Rate: regular rate Rhythm: regular rhythm Heart sounds: S1 normal heart sound present and S2 normal heart sound present GI Inspection: Yes normal to inspection Palpation (GI): Soft to palpation, nontender and no masses Auscultation: normal bowel sounds General: Yes no CVA tenderness Male General Exam: Yes normal external exam Back/Spine/Pelvis Back: no CVA tenderness and No back tenderness Skin Other: 2 Hyperpigmented moles on mid back, crusted-lesion on left lower leg Neuro General: patient oriented x3 Cranial nerves: Yes Equal, round and reactive pupils present and Yes Normal hearing present Cognition (Neuro): normal cognition Gait exam (Neuro): Normal gait present Motor exam (neuro): 5/5 motor strength present throughout Sensory Exam: No Sensory deficit (Neuro) Extrem General: Yes normal to inspection, Yes full ROM, Yes no joint enlargement, Yes no pedal edema, Yes no calf tenderness and Yes normal gait Psych Appearance: grossly normal and well kempt Mental Status: mental status grossly normal Speech and movement: Normal speech and movement present Affect: normal affect Coding Level of Care Code Est Pt Prev Care 18-39y(08753) Diagnoses Annual visit for general adult medical examination with abnormal findings Z00. Elevated liver enzymes R74.8 Dyslipidemia E78.5 Advance directive discussed with patient Z71.89 Additional Codes Vital Signs *Quality* - Advance Care Planning discussion: Completed/Scanned ([id number]) Assessment & Plan Assessment & Plan (1) Annual visit for general adult medical examination with abnormal findings: Code(s): Z00.01 - Encounter for general adult medical examination with abnormal findings (2) Elevated liver enzymes: Code(s): R74.8 - Abnormal levels of other serum enzymes Category: Medical (3) Dyslipidemia: Code(s): E78.5 - Hyperlipidemia, unspecified Category: Medical (4) Advance directive discussed with patient: Code(s): Z71.89 - Other specified counseling Plan: Initiated the conversation about Advanced Directives. Advanced Directives help patients prepare for current and future decisions about their medical treatment and place of care. Discussed with patient that it is a process where a patients current condition and prognosis are reviewed, their wishes for information regarding their illness are elicited, and likely medical dilemmas are presented and options discussed. Healthcare proxy form completed today. The form can be amended as needed, reviewed yearly and make changes as needed Plan discussed the management of gastroesophageal reflux disease through dietary modifications,. We also reviewed the need to re-evaluate cholesterol levels and monitor liver enzymes. Continue with taking Iris as needed for allerg symptoms , saline nasal spray, and Excedrin as needed for headache . Reminded to get yearly flu vaccine. Fasting labs ordered to check glucose, lipids and liver enzymes Orders: Orders Glucose Fasting 04/02/25 E78.5 - Hyperlipidemia, unspecified, R74.8 - Abnormal levels of other serum enzymes, Z00.01 - Encounter for general adult medical examination with abnormal findings Alanine Aminotransferase 04/02/25 E78.5 - Hyperlipidemia, unspecified, R74.8 - Abnormal levels of other serum enzymes, Z00.01 - Encounter for general adult medical examination with abnormal findings Aspartate Amino Transferase 04/02/25 E78.5 - Hyperlipidemia, unspecified, R74.8 - Abnormal levels of other serum enzymes, Z00.01 - Encounter for general adult medical examination with abnormal findings Lipid Panel 04/02/25 E78.5 - Hyperlipidemia, unspecified, R74.8 - Abnormal levels of other serum enzymes, Z00.01 - Encounter for general adult medical examination with abnormal findings
--- OUTSIDE RECORDS SUMMARY | 2025-04-01 10:01 | XMS_ITS | Clinical Summary ---
Author Organization [facility] [employer] [facility] lin Address [address] [place] [address] Care Team Providers Care Pharmacy Benefits Coordinator Name Role Phone Dedrick Iraheta MD Primary Care Provider Allergies No known active allergies Medications No known medications Immunizations Immunization Administration Dates Next Due Flucelvax Trivalent PFS [...] 60 01/30/2021 2:48 PM EDT Temperature 36.4 C (97.6 F) 01/30/2021 2:48 PM EDT Respiratory Rate 16 01/30/2021 2:48 PM EDT [...] Adults 18 yrs or above (or HM Modifier)([facility]) 2003 Hepatitis C Virus Infection in Adolescents and Adults: Screening (or Modifier) ([facility]) 2003 SDOH Screening Reminder: Ramona carlosllsanju for all adults ([facility]) 2003 Tobacco Smoking Cessation: i n Adults excluding Women: Behavioral and Pharmacotherapy Interventions ([facility]) 2003 DTaP/Tdap/Td Vaccines ([facility]) (1 - Tdap) 2004 COVID-19 Vaccine Screening: Initial Series and Booster Status ([facility]) ( - 2023- season) 2024 Flu Vaccination: Yearly for ages 18mos through 64 years (or Modifier)([facility]) 02/20/2025 03/17/2019 Zoster/Shingles Vaccine Seri es Screening: Adults aged 18+ yrs (or HM Modifiers)([facility]) (1 of 2) 2035 Pneumococcal Vaccination Scr eening: Pts 0-19 & 19-49 yrs of age ([facility]) Aged Out No longer eligible b ased on patient's age to complete this topic Medical Devices Not on file Insurance [facility] Care Teams Pharmacy Benefits Coordinator Relationship Specialty Start Date End Date Dedrick Iraheta MD [address] [place] [id number] PCP - General Internal Medicine 01/30/21
== END 2025-04-01 16:07 | disposition home or self-care (01) ==
LOC: HO.HMCC 08:40
PROVIDERS: PCP Internal Medicine; Visit Provider Internal Medicine
DX: Z00.01 Encounter for general adult medical examination with abnormal findings (principal); R74.8 Abnormal levels of other serum enzymes; E78.5 Hyperlipidemia, unspecified; Z71.89 Other specified counseling; Z00.00 Encounter for general adult medical examination without abnormal findings

== ENCOUNTER 2025-04-02 07:04 | Outpatient (REF) | payer OTHER, SELFPAY ==
[2025-04-02 11:33] LABS: Alanine Aminotransferase 47 U/L (0-40); Aspartate Amino Transferase 33 U/L (5-37); Cholesterol 225 mg/dL (<200); HDL Cholesterol 59 mg/dL (>40); Triglycerides 67 mg/dL (<150)
== END 2025-04-02 07:05 | disposition home or self-care (01) ==
LOC: HO.HMGCLDS 07:04
PROVIDERS: PCP Internal Medicine; Visit Provider Internal Medicine
DX: Z00.01 Encounter for general adult medical examination with abnormal findings (principal); E78.5 Hyperlipidemia, unspecified; R74.8 Abnormal levels of other serum enzymes
CPT/HCPCS: 36415; 80061; 82947; 84450; 84460

== ENCOUNTER 2025-06-17 07:10 | Outpatient (REF) | payer OTHER, SELFPAY ==
--- OUTSIDE RECORDS SUMMARY | 2025-06-17 07:13 | XMS_ITS | Clinical Summary ---
Author Organization [facility] [employer] [facility] lin Address [address] [place] [address] Care Team Providers Care Strategic Marketing Leader Name Role Phone Dedrick Iraheta MD Primary [...] 01/30/2021 2:48 PM EDT Plan of Treatment Not on file Medical Devices Not on file Insurance [employer] [address] [place] [address] Care Teams Strategic Marketing Leader Relationship Specialty Start Date End Date Dedrick Iraheta MD [address] [facility] [address] [place] [phone] PCP - General Internal Medicine 01/30/21
[2025-06-19 22:28] LABS: Rubeola IgG (Measles) 185.00 AU/mL
== END 2025-06-17 07:11 | disposition home or self-care (01) ==
LOC: HO.HMGCLDS 07:10
PROVIDERS: PCP Internal Medicine; Visit Provider Internal Medicine
DX: Z01.84 Encounter for antibody response examination (principal); Z11.1 Encounter for screening for respiratory tuberculosis
CPT/HCPCS: 36415; 86735; 86762; 86765

== ENCOUNTER 2025-06-22 07:18 | Outpatient (REF) | payer OTHER, SELFPAY ==
--- OUTSIDE RECORDS SUMMARY | 2025-06-22 07:21 | XMS_ITS | Clinical Summary ---
Author Organization [facility] lin Address [address] [place] [address] Care Team Providers Care Bacteriologist Pharmaceutical Name Role Phone Dedrick Iraheta MD Primary [...] Not on file Insurance [address] [address] [place] [phone] Care Teams Bacteriologist Pharmaceutical Relationship Specialty Start Date End Date Dedrick Iraheta MD [address] [facility] [address] [place] [phone] PCP - General Internal Medicine 01/30/21
[2025-06-25 11:48] LABS: TS Negative Control Passed; TS Panel A 0; TS Panel B 0; TS Positive Control Passed; TSpotTB Negative (Negative)
== END 2025-06-22 07:19 | disposition home or self-care (01) ==
LOC: HO.HMGCLDS 07:18
PROVIDERS: PCP Internal Medicine; Visit Provider Internal Medicine
DX: Z11.1 Encounter for screening for respiratory tuberculosis (principal)
CPT/HCPCS: 36415; 86481